=== PATIENT | female | born 1960 | race Caucasian/White ===

== ENCOUNTER 2019-07-07 14:22 | Inpatient (IN) | payer MEDICARE ==
[~2019-07-07] VITALS: Ht 157.5 cm; Wt 76.3 kg
[2019-07-22] VITALS (10 sets, daily range): BP systolic 109–186; BP diastolic 56–89; PULSE 79–94; TEMP 97.6–98
[2019-07-22 06:28] LABS: BASO # 0.1 (0.0-0.2); BASO % 0.5 % (0.0-2.0); EOS # 0.2 (0.0-0.7); EOS % 1.5 % (0-4.0); GRAN # 6.5 (1.4-6.5); GRAN % 59.1 % (42.2-75.2); HEMATOCRIT 39.1 % (37.0-47.0); HEMOGLOBIN 13.2 g/dl (12.5-16.0); LYMPH # 3.5 (1.2-3.4); LYMPH % 31.8 % (20.0-51.0); MEAN CELL VOLUME 84 fl (80.0-100.0); MEAN CORPUSCULAR HEMOGLOBIN 28 pg (27.0-31.0); MEAN CORPUSCULAR HGB CONC 34 g/dl (33.0-37.0); MEAN PLATELET VOLUME 10.5 fl (7.4-10.4); MONO # 0.7 (0.1-0.6); MONO % 6.3 % (1.7-9.3); PLATELET COUNT 239 K/mm3 (130-400); RED BLOOD COUNT 4.67 M/mm3 (4.10-5.30); REDCELL DISTRIBUTION WIDTH-CV 13.2 % (11.5-14.5)
[2019-07-22 06:36] LABS: CALCIUM 9.6 mg/dL (8.4-10.2); CREATININE, serum 0.51 (0.52-1.25); POTASSIUM 3.8 mmol/L (3.4-5.0)
[2019-07-22] MEDS ORDERED: LANOXIN 0.25M0.25 MG PO (06:57)
[2019-07-22] MEDS ORDERED: LINZESS72 MCG PO (06:57)
[2019-07-22] MEDS ORDERED: ZEBETA 5MG5 MG PO (06:58)
--- NOTE | 2019-07-22 11:30 | NUR ---
Patient post op to room 349. Report from Thalia in PACU. Patient sleepy. Vss on O2. Clear liquids provided. Ramírez cordova
--- NOTE | 2019-07-22 13:00 | NUR ---
Patient up to the commode. She voided. Complaints of pain, I reviewed with her ERAS protocol. Pain to her right side of abdomen. Patient reports chronic back pain. I offered K pad, she request ice pack. Post op vitals stable on O2. Will monitor.
--- NOTE | 2019-07-22 17:10 | NUR ---
Patient sitting at edge of bed, she has been to the bathroom. Voided & reports pink blood from rectum when she wiped, I reviewed this is to be expected. Patient rocking back and forth on bed, due to increased pain. Patient rating 7/10. Second tab of roxicodone given. She is tolerating orange Jello & ice chips. No complaints of nausea. Will monitor
--- NOTE | 2019-07-22 19:25 | NUR ---
Patietn pain not releived with Roxicodone, Iv morphine given. SHe is now sleepy. Bedside report to night nurse
[2019-07-23 00:51] VITALS: BP 151/69; PULSE 91; TEMP 98.1
--- NOTE | 2019-07-23 03:12 | NUR ---
Patient has rested well throughout the night. PRN pain medication administered as needed. Patient's pain has been well controlled this shift. Patient is voiding well. Patient up to the bathroom independently. IV to INT. Patient tolerating clears well with no issues. 5 lap sites noted with no dressing present. Gauze with tape covering the lower transverse incision. Dressing CDI. Patient states she has passed gas. Will conitnue to monitor.
[2019-07-23 04:00] VITALS: BP 109/54; PULSE 74; TEMP 98.8
[2019-07-23 06:14] LABS: HEMATOCRIT 33.6 % (37.0-47.0); HEMOGLOBIN 11.1 g/dl (12.5-16.0)
[2019-07-23 06:23] LABS: CALCIUM 9.2 mg/dL (8.4-10.2); CREATININE, serum 0.59 (0.52-1.25); MAGNESIUM 1.7 mg/dL (1.6-2.3); PHOSPHOROUS 4.1 mg/dL (2.5-4.5)
[2019-07-23 07:32] VITALS: BP 123/54; PULSE 71; TEMP 98.2
--- NOTE | 2019-07-23 10:27 | NUR ---
Dr Vieyra here to see patient.
--- NOTE | 2019-07-23 10:45 | NUR ---
Patient alert and oriented, answers questions appropriately. See assessment. Abdomen soft, non distended. Bowel sounds active x4 quads. +Flatus. No bowel movement. Lap sites with edges well approximated, no redness or drainage noted. Low transverse incision with dressing CDI. ERAS protocol reviewed with patient. Encouraged ambulation. Patient refused a.m. dose of Lovenox, Dr Vieyra notified. No other c/o at this time.
--- NOTE | 2019-07-23 11:39 | NUR ---
LYLE met with the patient to discuss discharge plan. The patient lives in [place] with her , Jorge ([id number]#[phone]), and two grandchildren. She reports independence with ADLs and does not have any DME. The patient's PCP is Dr. Myriam Ramirez and she receives her medications at [facility]. She reports no difficulties obtaining her meds. The patient does not have advanced directives completed, but she was interested in obtaining a form for DPOA-HC. LYLE provided. The patient plans to return home with her family upon discharge. No additional needs at this time.
--- NOTE | 2019-07-23 12:29 | NUR ---
First visit from the miller helper. No needs right now.
[2019-07-23 12:54] VITALS: BP 123/54; PULSE 66; TEMP 98
[2019-07-23 17:39] VITALS: BP 162/72; PULSE 78; TEMP 98.1
[2019-07-23 19:49] VITALS: BP 163/76; PULSE 80; TEMP 98.6
[2019-07-24 00:17] VITALS: BP 150/72; PULSE 76; TEMP 97.6
--- NOTE | 2019-07-24 04:23 | NUR ---
Patient has rested well throughout the night. No PRN medication given for pain this shift. Patient called and stated she throught she pulled open one of her lap sites. Assessed and no drainage noted. Patient educated on the surgical glue used and signs of a dehisence. 5 lap sites are clean, dry, and intact with no dressing. Lower incision noted to have dressing that is clean, dry, and intact. Patient ambulates in the room, but continues to refuse to walk in the hallways. Requests and receives jello and ice chips throughout the night and tolerates this well. Voiding well. Denies any further needs. Will continue to monitor.
[2019-07-24 07:36] LABS: HEMOGLOBIN 11.3 g/dl (12.5-16.0)
[2019-07-24 07:51] LABS: HEMATOCRIT 34.6 % (37.0-47.0)
[2019-07-24 08:00] VITALS: BP 155/76; PULSE 74; TEMP 98.1
--- NOTE | 2019-07-24 09:30 | NUR ---
Patient alert and oriented, answers questions appropriately. See assessment. Abdomen soft, non tender, non distended. Bowel sounds active x4 quads. Lap sites and low transverse incision with edges well approximated, no redness or drainage noted. +Flatus. +Bowel movement. ERAS protocol reviewed with patient. No c/o at this time.
[2019-07-24 12:52] VITALS: BP 145/58; PULSE 84; TEMP 98.7
--- NOTE | 2019-07-24 15:30 | NUR ---
Dr Fenton here to see patient.
--- NOTE | 2019-07-24 16:16 | NUR ---
Discharge instructions reviewed with patient, verbalized understanding. Discharged via wheelchair to auto/home with spouse at 1605.
== END 2019-07-24 16:05 | disposition home or self-care (01) | DRG 331 ==
LOC: INPTSU 07-22 05:45 → SURG 07-22 07:30
PROVIDERS: ADMIT Surgery
PROC: 0DTN4ZZ Resection of Sigmoid Colon, Percutaneous Endoscopic Approach (ICD-10-PCS; principal; 2019-07-22 07:30)
DX: K57.32 Diverticulitis of large intestine without perforation or abscess without bleeding (principal); I10 Essential (primary) hypertension; E66.9 Obesity, unspecified; Z68.30 Body mass index [BMI] 30.0-30.9, adult
CPT/HCPCS: A4314; A9284; J0694; J1100; J1170; J1885; J2175; J2250; J2270; J2405; J2704; J7120

== ENCOUNTER → 2019-07-17 | Outpatient (CLI) | payer MEDICARE ==
[~2019-07-17] MED LIST: LANOXIN 0.25M0.25 MG PO; LINZESS72 MCG PO; ZEBETA 5MG5 MG PO
== END ==
LOC: COL.LAB 08:00
DX: Z20.828 Contact with and (suspected) exposure to other viral communicable diseases (principal)